=== PATIENT | male | born 1995 | race Caucasian/White ===

== ENCOUNTER 2018-01-12 20:29 | Emergency (ER) | payer OTHER ==
[2018-01-12] MEDS: CEFAZOLIN 1 GM/50 ML (PMX) 50 ML IVPB (23:22)
[2018-01-12] MEDS: KETOROLAC 15 MG INJ IV (23:22)
== END 2018-01-13 00:11 | disposition home or self-care (01) ==
LOC: FTE 20:29
DX: J03.90 Acute tonsillitis, unspecified (principal)
CPT/HCPCS: 96374; 96375; 99284-25